=== PATIENT | female | born 2000 | race Caucasian/White ===

== ENCOUNTER 2020-02-29 17:09 | Emergency (ER) | payer OTHER, SELFPAY ==
--- NOTE | ~2020-02-29 | XR_ITS ---
XR wrist RT min 3V DATE: 02/29/2020 17:42 INDICATION: Pain and swelling TECHNIQUE: 4 views COMPARISON: None FINDINGS: There is a virtually nondisplaced transverse lucent fracture line through the mid to distal waist of the navicular bone. No other fracture or dislocation. No periosteal reaction or bone destruction is noted otherwise. IMPRESSION: Virtually nondisplaced transverse fracture of the mid to distal waist of the navicular nelsy ne Reviewed, dictated and finalized at location A. IMPRESSION: Virtually nondisplaced transverse fracture of the mid to distal [address] of the navicular bone
--- NOTE | ~2020-02-29 | XR_ITS ---
XR hand RT min 3V DATE: 02/29/2020 17:41 INDICATION: Skateboard injury on 02/28/2020. Pain and swelling of the metacarpophalangeal joints TECHNIQUE: 3 views of the left hand COMPARISON: None FINDINGS: There is a transverse lucency through the mid to distal aspect of the navicular waist consi stent with virtually nondisplaced recent navicular bone fracture. No other fracture or dislocation is evident. IMPRESSION: Virtually nondisplaced recent fracture through the mid to distal waist of the navicular b one Reviewed, dictated and finalized at location A. IMPRESSION: Virtually nondisplaced recent fracture through the mid to distal wa ist of the navicular bone
[2020-02-29 17:18] VITALS: BP 103/60; PULSE 84; RESP 16; TEMP 36.9; O2SAT 100
--- NOTE | 2020-02-29 18:00 | ED.UPPEXIN ---
HPI - Extremity Injury (Upper) General Chief Complaint: Extremity Injury, Upper Stated Complaint: right wrist injury Time Seen by Provider: 02/29/20 17:30 Source: patient and RN notes reviewed Mode of arrival: ambulatory Limitations: no limitations History of Present Illness HPI narrative: 20 year old female who presents to express care with complaints of swelling and pain to her right wrist and proximal hand thumb side with some bruising noted to dorsal proximal aspect of right hand after falling off of skateboard yesterday. Patient states that she has been applying ice to her hand and took some Tylenol. Patient denies hitting her head or any LOC at time of fall, has some superficial abrasions to her knees. MD complaint: injury to: right Onset (ago): day(s) (1) Other Extremity Injury: Right: hand and wrist Other injuries: none Handedness: right Place: outdoors Severity: moderate Severity scale (1-10): 5 Relieving factors: cold therapy and rest Exacerbating factors: movement of extremity Context: fall Treatments prior to arrival: cold therapy and other Related Data Home Medications Medication Instructions Recorded Confirmed No Home Medications 02/29/20 02/29/20 Allergies Allergy/AdvReac Type Severity Reaction Status Date / Time No Known Allergies Allergy Verified 02/29/20 17:39 Review of Systems Review of Systems: Narrative: CONSTITUTIONAL: Denies fever, chills, or sweats. EYES: Denies visual changes, redness, or discharge. ENT: Denies rhinorrhea, congestion, sore throat, or otalgia. CARDIOVASCULAR: Denies chest pain, palpitations, or edema. RESPIRATORY: Denies cough or dyspnea. GASTROINTESTINAL: Denies abdominal pain, nausea, vomiting, or diarrhea. GENITOURINARY: Denies dysuria or hematuria. SKIN: Denies rash or itching. MUSCULOSKELETAL: Denies back pain, positive for pain to her right wrist and proximal hand thumb side with swelling and bruising.. NEUROLOGIC: Denies headache, numbness, or weakness. PSYCHIATRIC: Denies anxiety or depression. All systems reviewed & are unremarkable except as noted in HPI and below PMFSH Past Medical History Medical History (Updated 03/01/20 @ 16:08 by Trish Trotter NP) UTI (urinary tract infection) Surgical History Surgical History (Updated 03/01/20 @ 16:01 by Trish Trotter NP) No significant past surgical history Social History Social History (Updated 03/01/20 @ 15:57 by Trish Trotter NP) Smoking status: Current some day smoker Living arrangements: with family Gender identity (if verbalized by the patient): Female Comments At time of signature, agree with nursing past medical, surgical, social history. There is no relevant family history pertinent to the presenting complaint Exam Narrative: Exam Narrative: GENERAL: Well-appearing, well-nourished, and in no acute distress. HEAD: Normocephalic, atraumatic. EYES: PERRLA and EOMI. ENT: Nares clear, no rhinorrhea or epistaxis. Mucous membranes moist. NECK: Supple.no lymphadenopathy CHEST: Clear to auscultation. No respiratory distress.SAO2 100% on room air HEART: Regular rate and rhythm. No murmur heard. Normal peripheral pulses. ABDOMEN: Soft, nontender, nondistended, normal active bowel sounds. EXTREMITIES: Normal range of motion. No edema;With exception of right wrist and proximal hand with swelling and pain noted from skateboard injury yesterday. Patient also noted to have some superficial abrasions note to anterior knees from incident. Patient has strong right radial pulse and nail beds have brisk capillary refill to right digits, denies any feelings of tingling or numbness SKIN: Warm, dry, superficial abrasion knees NEURO: No focal deficits. Alert and oriented x3. Course Vital Signs Vital signs: Vital Signs Temperature 36.9 C 02/29/20 17:18 Pulse Rate 84 02/29/20 17:18 Respiratory Rate 16 02/29/20 17:18 Blood Pressure 103/60 02/29/20 17:18 Pulse Oximetry 100 02/29/20 17:18
== END 2020-02-29 18:40 | disposition home or self-care (01) ==
PROVIDERS: Emergency Provider Registered Nurse
DX: S62.014A Nondisplaced fracture of distal pole of navicular [scaphoid] bone of right wrist, initial encounter for closed fracture (principal); V00.131A Fall from skateboard, initial encounter; F17.200 Nicotine dependence, unspecified, uncomplicated
CPT/HCPCS: 29125; 73110; 73130; 99214; A4565; G0463

== ENCOUNTER 2020-03-11 17:59 | Emergency (ER) | payer OTHER, SELFPAY ==
[2020-03-11 18:07] VITALS: BP 103/56; PULSE 97; RESP 16; TEMP 38; O2SAT 100
--- NOTE | 2020-03-11 18:24 | ED.URI ---
HPI - URI/Sore Throat General Chief Complaint: Upper Respiratory Infection Stated Complaint: sore throat/body aches Time Seen by Provider: 03/11/20 18:24 Source: patient and RN notes reviewed Mode of arrival: ambulatory Limitations: no limitations History of Present Illness HPI Narrative: 20-year-old female presents with concern for 1 day history of sore throat, body aches, fever. Reports postnasal drainage, denies rhinorrhea, nasal congestion, ear pain, cough, shortness of breath. Denies any sick contacts. Reports history of strep infections MD elicited complaint: sore throat Related Data Allergies Allergy/AdvReac Type Severity Reaction Status Date / Time No Known Allergies Allergy Verified 02/29/20 17:39 Review of Systems Review of Systems: Narrative: CONSTITUTIONAL: Denies malaise, chills, sweats, or fever. EYES: Denies visual changes, redness, or discharge. ENT: Denies rhinorrhea, congestion, sinus pain, otalgia. Reports sore throat. CARDIOVASCULAR: Denies chest pain, palpitations, or edema. RESPIRATORY: Denies cough or dyspnea. GASTROINTESTINAL: Denies abdominal pain, nausea, vomiting, diarrhea SKIN: Denies rash or itching. MUSCULOSKELETAL: Reports myalgia. NEUROLOGIC: Denies headache. All systems reviewed & are unremarkable except as noted in HPI and below PMFSH Past Medical History Medical History (Updated 03/11/20 @ 18:42 by Alicia Dwyer NP) UTI (urinary tract infection) Surgical History Surgical History (Updated 03/01/20 @ 16:01 by Trish Trotter NP) No significant past surgical history Social History Social History (Updated 03/01/20 @ 15:57 by Trish Trotter NP) Smoking status: Current some day smoker Gender identity (if verbalized by the patient): Female Comments At time of signature, agree with nursing past medical, surgical, social and family history. There is no relevant family history pertinent to the presenting complaint Exam Narrative: Exam Narrative: GENERAL: Well-appearing, well-nourished, and in no acute distress. HEAD: Normocephalic EYES: PERRLA, conjunctivae clear ENT: Nares clear, turbinates erythematous, clear discharge. Mucous membranes moist. TM pearly poole with dull light reflex bilaterally; no tragal tenderness. Oropharynx erythematous without lesions. Tonsils enlarged and without exudate, no drooling, no hoarseness, no trismus, uvula midline. NECK: Supple. No lymphadenopathy CHEST: Clear to auscultation, breath sounds equal. No wheezing, rhonchi, rales, or stridor. No respiratory distress, speaks in full sentences. HEART: Regular rate and rhythm. No murmur heard. SKIN: Warm, dry, no rash. NEURO: Alert and oriented x3. PSYCH: Normal mood and affect Course Course Emergency Course: Patient is aware of diagnosis, understands and agrees to treatment plan. Anticipatory guidance given. Patient agrees to follow-up as directed and is aware of reasons to seek care at the emergency department. Portions of this record may have been created with voice recognition software Vital Signs Vital signs: Vital Signs Temperature 100.4 F H 03/11/20 18:07 Pulse Rate 97 03/11/20 18:07 Respiratory Rate 16 03/11/20 18:07 Blood Pressure 103/56 L 03/11/20 18:07 Pulse Oximetry 100 03/11/20 18:07 Temperature 100.4 F H 03/11/20 18:07 Pulse Rate 97 03/11/20 18:07 Respiratory Rate 16 03/11/20 18:07 Blood Pressure 103/56 L 03/11/20 18:07 Pulse Oximetry 100 03/11/20 18:07 Reviewed. MDM - URI/Sore Throat MDM Narrative Medical decision making narrative: Differential diagnosis considered: Snyder virus, strep pharyngitis, allergic rhinitis, upper respiratory tract infection, sinusitis, rhinosinusitis, nasopharyngitis. viral pharyngitis, otitis media, otitis externa, pneumonia, bronchitis, viral cough syndrome, viral syndrome, and influenza. Exam findings show no acute concerns or changes; patient is non-toxic appearing and is in no distress. Patient is appropr
== END 2020-03-11 18:45 | disposition home or self-care (01) ==
PROVIDERS: Emergency Provider Nurse Practitioner
DX: J03.90 Acute tonsillitis, unspecified (principal); F17.200 Nicotine dependence, unspecified, uncomplicated
CPT/HCPCS: 87081; 87880; 99213; G0463

== ENCOUNTER 2020-03-30 16:17 | Outpatient (CLI) | payer OTHER, SELFPAY ==
--- NOTE | ~2020-03-30 | XR_ITS ---
XR wrist RT min 3V DATE: 03/30/2020 16:47 INDICATION: Scaphoid fracture TECHNIQUE: 3 views COMPARISON: 02/29/2020 right wrist FINDINGS: There is a cast of the forearm and wrist and hand. Again noted is a transverse fracture through the waist of the navicular bone, with minimal displaceme nt, no CVA change in position or alignment since 02/29/2020. IMPRESSION: Casted navicular waist fracture Reviewed, dictated and finalized at location B.
== END 2020-03-30 16:18 | disposition home or self-care (01) ==
PROVIDERS: Visit Provider Plastic Surgery
DX: S62.021D Displaced fracture of middle third of navicular [scaphoid] bone of right wrist, subsequent encounter for fracture with routine healing (principal); X58.XXXD Exposure to other specified factors, subsequent encounter
CPT/HCPCS: 73110

== ENCOUNTER 2020-04-24 17:21 | Outpatient (CLI) | payer OTHER, SELFPAY ==
--- NOTE | ~2020-04-24 | XR_ITS ---
XR wrist RT min 3V 04/24/2020 17:41 Indication: Scaphoid fracture Procedure: 4 views right wrist Comparison: 02/29/2020 Findings: There is a healing scaphoid waist fracture with developing callus formation. There is devel oping subtle sclerosis at the proximal pole. Cannot exclude avascular necrosis. No significant displa cement. No other fractures. No significant soft tissue abnormality. No foreign bodies. Impression: 1: Healing scaphoid waist fracture. Subtle developing sclerosis proximal pole of the scaphoid, suspic ious for avascular necrosis. Reviewed, dictated and finalized at location A. Impression: 1: Healing scaphoid waist fracture. Subtle developing sclerosis proximal pole o f the scaphoid, suspicious for avascular necrosis.
== END 2020-04-24 17:22 | disposition home or self-care (01) ==
PROVIDERS: Visit Provider Plastic Surgery
DX: S62.024A Nondisplaced fracture of middle third of navicular [scaphoid] bone of right wrist, initial encounter for closed fracture (principal); X58.XXXA Exposure to other specified factors, initial encounter
CPT/HCPCS: 73110

== ENCOUNTER 2020-06-05 14:37 | Outpatient (CLI) | payer OTHER, SELFPAY ==
--- NOTE | ~2020-06-05 | MR_ITS ---
EXAMINATION: MR wrist RT wo/w con DATE: 06/05/2020 16:12 INDICATION: Right navicular fracture. TECHNIQUE: Magnetic resonance imaging (MRI) of the wrist was performed without and with 12 mL MultiHa nce intravenous contrast. Sequences included axial T1-weighted FS FSE and axial, coronal, and sagitta l T1-weighted FSE, T2-weighted FS FSE, and postcontrast T1-weighted FS FSE. COMPARISON: Right wrist radiograph 01/23/2020, 02/29/2020 FINDINGS: Intrinsic ligaments: Scapholunate ligament and lunotriquetral ligament are normal. Triangular fibrocartilage complex (TFCC): The triangular fibrocartilage is normal. Extensor wrist: The extensor tendons are normal. Flexor wrist: The flexor tendons are normal. Median nerve is normal. Guyon's canal: The ulnar nerve is normal. Bones/other: There is a transverse fracture of the distal scaphoid waist. The distal fracture fragment demonstrate s near-anatomic alignment. There is heterogeneous signal intensity and enhancement in the bone at the fracture site and proximal to the fracture site spanning 11 mm [id number]. IMPRESSION: 1. Nondisplaced distal scaphoid waist fracture with abnormal signal intensity in the proximal fractur e fragment, consistent with osteonecrosis. Reviewed, dictated and finalized at location B. 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 Nondisplaced distal scaphoid waist fracture with abnormal signal intensity i n the proximal fracture fragment, consistent with osteonecrosis.
[2020-06-05 15:20] LABS: Estimated Glomerular Filt Rate > 60
== END 2020-06-05 14:38 | disposition home or self-care (01) ==
PROVIDERS: Visit Provider Plastic Surgery
DX: S62.001D Unspecified fracture of navicular [scaphoid] bone of right wrist, subsequent encounter for fracture with routine healing (principal); X58.XXXD Exposure to other specified factors, subsequent encounter
CPT/HCPCS: 73223; A9577

== ENCOUNTER 2020-07-11 17:54 | Outpatient (CLI) | payer SELFPAY ==
--- NOTE | ~2020-07-11 | XR_ITS ---
EXAMINATION: XR wrist RT min 3V DATE: 07/11/2020 18:13 INDICATION: Right wrist scaphoid fracture. TECHNIQUE: Posteroanterior, ulnar deviation, oblique, and lateral views of the right wrist were obtai paola. COMPARISON: Right wrist MRI dated 06/05/2020 and radiographs dated 04/24/2020 FINDINGS: There is increased sclerosis and essentially resolved lucency along the previous noted fracture line extending across the scaphoid waist consistent with interval healing. There is a region of increased sclerosis to more proximal pole which appears to correspond to a very subtle nondisplaced fracture wi th tiny lucent fracture line evident along the distal articular surface on radiograph dated 02/29/2020 but which is more definitively visualized as a low signal intensity line on the prior MRI. There is r etention of normal T1 hyperintense fat signal in the proximal, middle and distal thirds of the scapho id with no geographic loss of T1 fat signal to suggest avascular necrosis. Further arguing against av ascular necrosis is enhancement throughout the middle fragment as well as extending beyond the inner fracture line into the proximal pole fragment. The fracture appears to be healing with a very mild vo lar angulation of the distal pole fragment. No evident fracture gap or incongruity along the articula r cortices. Remainder of the visualized right wrist and hand are unremarkable. IMPRESSION: 1. Comminuted fractures of the right scaphoid healing in near-anatomic alignment with no incongruity or step-off along the articular cortices and with only mild volar angulation of the distal pole fragm ent. No findings to suggest avascular necrosis on the prior MRI. Reviewed, dictated and finalized at location A. 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 Comminuted fractures of the right scaphoid healing in near-anatomic alignmen t with no incongruity or step-off along the articular cortices and with only mi ld volar angulation of the distal pole fragment. No findings to suggest avascul ar necrosis on the prior MRI.
== END 2020-07-11 17:55 | disposition home or self-care (01) ==
PROVIDERS: Visit Provider Plastic Surgery
DX: S62.024D Nondisplaced fracture of middle third of navicular [scaphoid] bone of right wrist, subsequent encounter for fracture with routine healing (principal); X58.XXXD Exposure to other specified factors, subsequent encounter
CPT/HCPCS: 73110

== ENCOUNTER 2020-09-01 12:17 | Outpatient (CLI) | payer OTHER, SELFPAY ==
--- NOTE | ~2020-09-01 | XR_ITS ---
EXAMINATION: XR wrist RT min 3V DATE: 09/01/2020 12:45 INDICATION: Scaphoid fracture TECHNIQUE: Posteroanterior, ulnar deviation, oblique, and lateral views of the right wrist were obtai paola. COMPARISON: 07/11/2020 and 04/24/2020 FINDINGS: Nondisplaced fracture at the waist of the scaphoid appears healed with contiguous trabecular pattern extending across the region of the prior fracture plane. No interval change in some relative sclerosi s at the proximal pole of the region of an additional nondisplaced fracture which is evident on prior MRI. Alignment remains essentially anatomic. No other fractures identified. Joint spaces are normal. Bone island at the radial styloid process. IMPRESSION: 1. Healed fracture of the scaphoid waist with no change in subtle nonspecific relative sclerosis at t he proximal pole which could represent persistent changes of healing of a second fracture plane at th e proximal pole although secondary avascular necrosis is not definitively excludable. Reviewed, dictated and finalized at location B. 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 Healed fracture of the scaphoid waist with no change in subtle nonspecific r elative sclerosis at the proximal pole which could represent persistent changes of healing of a second fracture plane at the proximal pole although secondary avascular necrosis is not definitively excludable.
== END 2020-09-01 12:18 | disposition home or self-care (01) ==
PROVIDERS: Visit Provider Plastic Surgery
DX: S62.001D Unspecified fracture of navicular [scaphoid] bone of right wrist, subsequent encounter for fracture with routine healing (principal); X58.XXXD Exposure to other specified factors, subsequent encounter
CPT/HCPCS: 73110